=== PATIENT | male | born 1940 | race Hispanic/Latino ===

== ENCOUNTER 2020-07-16 05:55 | Day surgery (SDC) | payer MEDICARE ==
[2020-07-13 13:15] LABS: BASOPHILS % (AUTO) 0.4 % (0.0-5.0); LYMPHOCYTES % (AUTO) 14.3 % (21.0-51.0); MEAN CORPUSCULAR HEMOGLOBIN 24.4 pg (27.0-33.0); MEAN CORPUSCULAR HGB CONC 29.4 g/dL (32.0-36.0); MEAN CORPUSCULAR VOLUME 82.9 fL (79-99); MONOCYTES % (AUTO) 5.8 % (3.0-13.0); NEUTROPHILS % (AUTO) 78.1 % (40.0-77.0); PLATELET COUNT (AUTO) 309 K/uL (130-400); RED BLOOD CELL COUNT(AUTO) 3.98 MIL/uL (4.50-6.20); RED CELL DISTRIBUTION WIDTH 20.2 % (11.0-15.5); WHITE BLOOD COUNT (AUTO) 7.3 K/uL (4.8-10.8)
[2020-07-13 13:25] LABS: CREATININE 2.2 mg/dL (0.5-1.5); POTASSIUM 3.8 mmol/L (3.5-5.1)
[2020-07-13 13:26] LABS: INR 1.32 (0.85-1.15)
[2020-07-13 13:27] VITALS: BP 110/50
[~2020-07-16] VITALS: Ht 170.2 cm; Wt 69.2 kg
[2020-07-16] VITALS (10 sets, daily range): BP systolic 96–120; BP diastolic 47–62
[~2020-07-16 05:55] MED LIST: CHOL2000 PO; CLON0.5T4 PO; CLOP75TA14 PO; FAMO20TA8 PO; FINA5TAB41 PO; FOLI0.8T3 PO; FURO-152 PO; GABA-529 PO; LISI20TA24 PO; MIRT-22 PO; MORP15TA70 PO; PIOG1TAB7 PO; SIMV-46 PO; TAMS-1 PO
[2020-07-16] MEDS ORDERED: 0.9%NACL 1000ML 1,000 ML IV SCH ×2 (06:00→09:15)
[2020-07-16] MEDS ORDERED: MIDAZOLAM HCL 1 MG/ML 2ML VIAL ONE (07:33)
[2020-07-16] MEDS ORDERED: NITROGLYCERIN 2 MG VIAL IV ONE (07:33)
[2020-07-16] MEDS ORDERED: FENTANYL CITRATE PF 50 MCG/1 ML 2ML VIAL ONE (07:33)
[2020-07-16] MEDS ORDERED: IODIXANOL 320 MG/ML 100 ML VIAL ONE (07:33)
[2020-07-16] MEDS ORDERED: HEPARIN 10,000 UNIT/10ML (1,000 UNIT/ML) VIAL ONE (07:33)
[2020-07-16] MEDS ORDERED: LIDOCAINE HCL 400MG/20ML VIAL ONE (07:34)
[2020-07-16] MEDS ORDERED: BUPR-49 PO (07:52)
[2020-07-16] MEDS ORDERED: MELA1TAB17 PO (07:52)
[2020-07-16] MEDS ORDERED: AEC81 PO (07:52)
[2020-07-16] MEDS ORDERED: DOXY100T2 PO (07:52)
== END 2020-07-16 14:00 | disposition home or self-care (01) ==
LOC: DAH 05:55
PROVIDERS: ATTEND Internal Medicine Cardiovascular Disease
DX: I70.245 Atherosclerosis of native arteries of left leg with ulceration of other part of foot (principal); L98.499 Non-pressure chronic ulcer of skin of other sites with unspecified severity; I70.92 Chronic total occlusion of artery of the extremities; I10 Essential (primary) hypertension; I87.2 Venous insufficiency (chronic) (peripheral); E78.5 Hyperlipidemia, unspecified; Z79.01 Long term (current) use of anticoagulants; Z95.5 Presence of coronary angioplasty implant and graft; Z90.49 Acquired absence of other specified parts of digestive tract; Z90.79 Acquired absence of other genital organ(s); Z72.89 Other problems related to lifestyle; Z79.84 Long term (current) use of oral hypoglycemic drugs; Z79.899 Other long term (current) drug therapy; Z79.82 Long term (current) use of aspirin
CPT/HCPCS: 36246; 36415; 71045; 75716; 80048; 82948 ×2; 85025; 85610; 85730; 93005; A4215; A4216; A4221; A4222; A4223 ×3; A4606; A4663; C1760; C1769; C1894 ×2; J1644; J2250; J3010; J3490 ×2; J7030; Q9967; 96360; 99156; 99157